=== PATIENT | female | born 1955 | race Caucasian/White ===

== ENCOUNTER → 2016-09-15 | Day surgery (SDC) | payer OTHER ==
[~2016-09-15] MED LIST: ASPI81CH37 CHEW; BUPIVACAINE/EPINEPHRINE 0.25% PF 30 ML VIAL ONE; HYDR25TA5 PO; ISOSULFAN BLUE 50 MG/5 ML VIAL SQ ONE; KETOROLAC TROMETHAMINE 30 MG/ML (IVP) VIAL IV PUSH ONE; LACTATED RINGER'S 1000 ML INJ 1,000 ML ONE; LIPI20TA PO; LISI10TA3 PO; LORA-392 PO; MIDAZOLAM HCL 2 MG/2 ML VIAL ONE; PROPOFOL 500 MG/50 ML BTL IV ONE; PROT40TA PO; VENL50TA PO; ceFAZolin 2 GM PREMIX 50 ML ONE
--- NOTE | 2016-09-15 14:08 | TN ---
cc: OLGA BURGOS M.D. DATE OF SURGERY: 09/15/2016 PREOPERATIVE DIAGNOSIS Right breast cancer. POSTOPERATIVE DIAGNOSIS Right breast cancer. PROCEDURE PERFORMED 1. Needle-localized right breast lumpectomy. 2. [place] node excision right axilla. SURGEON Olga Burgos MD ANESTHESIA General LMA. COMPLICATIONS None. INDICATION FOR PROCEDURE Ms. Boston is a pleasant 61-year-old female who is noted to have a mammographic abnormality in the right breast. She underwent percutaneous biopsy that was found to be invasive ductal carcinoma. She was seen and evaluated in the office. She was sent for MRI which showed no additional lesions of concern. The patient was offered lumpectomy with postoperative radiation versus mastectomy. The patient elected to have lumpectomy. The patient was felt not to be a candidate for partial breast irradiation by Dr. Gusman. Risks and benefits of needle-localized lumpectomy and sentinel node excision was discussed with her and she was agreeable. DETAILS OF PROCEDURE The patient was identified, brought to the operating room and placed supine on the operating table. After adequate general anesthesia was achieved with LMA the right breast was then injected with 10 ccs of isosulfan blue in the periareolar position as well as in the needle localization which was at about the 12 o'clock position of the right breast in the infraclavicular area. This was then massaged into the breast. The right breast and axilla was then prepped and draped in standard surgical fashion. Attention was first directed to the right axilla where the probe was used to locate the approximate location of the sentinel node. Because of the patient's upper outer quadrant lesion she had a lot of shine through and it was difficult to localize the exact location of the sentinel node but by preoperative imaging it appeared to be in the low axilla. 0.25% Marcaine was injected and a low axillary incision was then made. Dissection proceeded down to the subcutaneous tissue. Immediately we found a blue channel going to a group of lymph nodes. These were excised widely using electrocautery Bovie. Because the patient had minimal uptake in this area I elected to do a sampling of the lymph nodes in the approximate location of the blue dye and where the probe had the most activity. This area was excised and then checked and found to have a 10-second count of 751. This was labeled sentinel node package #1. Once we excised these nodes there was no activity whatsoever noted within the axilla. By direct visualization I could not see any blue channels or blue dye within the axilla once this area was excised. By direct palpation I could not palpate any significant adenopathy. Therefore, I felt confident in our axillary sampling. The wound was irrigated out with normal saline solution. 0.25% Marcaine was injected 10 ccs and then the wound was closed in two layers using 3-0 and 4-0 Vicryl. Attention was now directed to the right breast. The patient had a wire localization in the upper central portion of the right breast, very high up toward the infraclavicular region. Therefore, because of its location we were unable to use the hidden scar technique. We therefore made a transverse incision directly medial to the wire after anesthetizing with 0.25% Marcaine. Subcutaneous flaps were then raised in all directions. By MRI imaging the lesion appeared to abut the pectoralis major muscle. We therefore dissected all the way down to the pectoralis major muscle. The breast tissue was then dissected up off the pectoralis fascia. We were beyond the wire with generous margins in all directions. A short stitch was placed superior, long stitch was placed medial and the wire demarcated the lateral position. Specimen was sent to radiology where Dr. Humphrey confirmed the mass to be present within the specimen. Because the lesion abutted the pectoralis major muscle, I elected to go ahead and resect the pectoralis fascia directly posterior to the lesion. This was accomplished using electrocautery Bovie. This was sent as posterior pectoralis margin. We then used small metallic clips to circumferentially olga the area of the pectoralis muscle where the lesion had been in case radiation oncology wanted to boost this area. The wound was copiously irrigated with normal saline solution. The wound was then closed in two layers using 3-0 and 4-0 Vicryl. The lumpectomy cavity was then filled with 20 ccs of 0.25% Marcaine. The patient tolerated the procedure well, was awakened and brought to recovery in stable condition. MD NAFISA Marmolejo/KEYANNA /12:50 PM /1:48 PM
== END | disposition home or self-care (01) ==
LOC: ESDC 06:13
PROVIDERS: ATTEND Surgery Trauma Surgery
DX: D05.11 Intraductal carcinoma in situ of right breast (principal)
CPT/HCPCS: 00400; 01610; 19125; 38525; 38792; 88307; J0690; J1885; J2250; J3010; J7120; Q9968

== ENCOUNTER → 2016-09-26 | Day surgery (SDC) | payer OTHER ==
[~2016-09-26] MED LIST changes: +ACETAMINOPHEN/HYDROcodone 325 MG/5 MG TAB ONE; -ISOSULFAN BLUE 50 MG/5 ML VIAL SQ ONE; -KETOROLAC TROMETHAMINE 30 MG/ML (IVP) VIAL IV PUSH ONE; +PROPOFOL 1000 MG/100 ML BTL IV ONE; -PROPOFOL 500 MG/50 ML BTL IV ONE
--- NOTE | 2016-09-26 14:45 | TN ---
cc: MARANDA BURGOS M.D. DATE OF SURGERY: 09/26/2016 PREOPERATIVE DIAGNOSIS: Hematoma, status post sentinel node excision, right axillae. POSTOPERATIVE DIAGNOSIS: Hematoma, status post sentinel node excision, right axillae. PROCEDURE PREFORMED: Evacuation of hematoma right axillae. SURGEON: Maranda Burgos MD. ANESTHESIA: General TIVA. COMPLICATIONS: None. INDICATIONS FOR PROCEDURE: Miss Boston is a pleasant 61 year old female who had a right breast lumpectomy and sentinel node excision approximately eight days ago. She developed a hematoma on about postoperative day #3, initially this was managed conservatively but the hematoma expanded and was causing her discomfort. She was seen in the office yesterday and we discussed evaluation of the hematoma versus continued observation. The patient is likely to have the hematoma evacuated. The risks and benefits of the hematoma evacuation, drain placement was discussed with her in the office and she was agreeable. DETAILS: The patient was brought to the emergency room and placed supine on the operating room table. After adequate general anesthesia was received with IV the right axillae was prepped and draped in the standard surgical fashion. 0.25% Marcaine was injected, in the skin and subcutaneous tissue around the previous incision. The previous incision was then opened up. Axillae was then entered. A moderate size hematoma was identified and was evacuated with a combination of blunt finger dissection and suction dissection. 20 cc of hydrogen peroxide was then introduced into the wound to break up any additional clots. The wound was then copiously irrigated out with normal saline solution. Several small bleeding points were identified and these were cauterized with electrocautery bovie. There was no arterial or venous bleeding noted. Once we did this there was no bleeding what so ever. The wound was then irrigated out a third time and again no bleeding was noted. A 7 Welsh Denzel Florez drain was inserted through a separate stable wound incision after anesthetizing the sight and tract with 0.25% Marcaine. The drain was secured with the 3-0 nylon. The wound was then closed in two layers, using 3-0 Vicryl and 4-0 Vicryl. Sterile dressings were applied. 25 cc of 0.25% Marcaine was then injected into the drain and the drain was capped. The patient tolerated the [id number] well, was brought to the Recovery Room in angie condition. MD Jose Maria Marmolejo /12:24 PM /12:28 PM
== END | disposition home or self-care (01) ==
LOC: ESDC 10:06
PROVIDERS: ATTEND Surgery Trauma Surgery
DX: L76.32 Postprocedural hematoma of skin and subcutaneous tissue following other procedure (principal)
CPT/HCPCS: 00400; 10140; J0690; J2250; J3010; J7120

== ENCOUNTER 2016-11-19 09:21 | Emergency (ER) | payer OTHER ==
[~2016-11-19] VITALS: Ht 167.6 cm; Wt 72.8 kg
[2016-11-19 09:25] VITALS: BP 140/106; PULSE 106; RESP 16; TEMP 98.7; O2SAT 98
[2016-11-19] MEDS ORDERED: VENL50TA PO (09:56)
[2016-11-19] MEDS ORDERED: PROT40TA PO (09:56)
[2016-11-19] MEDS ORDERED: LIPI20TA PO (09:56)
[2016-11-19] MEDS ORDERED: LISI10TA3 PO (09:56)
[2016-11-19] MEDS ORDERED: HYDR25TA5 PO (09:56)
[2016-11-19] MEDS ORDERED: ASPIRIN 81 MG CHEW TAB PO ONE (10:00)
[2016-11-19] MEDS ORDERED: SODIUM CHLORIDE 0.9% FLUSH 10 ML FLUSH IVF PRN (10:00)
[2016-11-19] MEDS ORDERED: SODIUM CHLORID 0.9% 500 ML INJ 500 ML IV ONE (10:00)
[2016-11-19 10:29] LABS: AUTOMATED NEUTROPHIL # 4.9 TH/MM3 (1.8-7.7); BASOPHIL # 0.1 TH/MM3 (0-0.2); BASOPHIL % 1.7 % (0.0-2.0); EOSINOPHIL % 0.7 % (0.0-4.0); HEMATOCRIT 45.1 % (35.0-46.0); HEMO FLAGS DIFF FINAL; LYMPH % 13.2 % (9.0-44.0); LYMPHOCYTE # 0.9 TH/MM3 (1.0-4.8); MEAN CELL VOLUME 90.6 FL (80.0-100.0); MEAN CORPUSCULAR HEMOGLOBIN 30.1 PG (27.0-34.0); MEAN CORPUSCULAR HGB CONC 33.2 % (32.0-36.0); MONO % 9.5 % (0.0-8.0); NEUT % 74.9 % (16.0-70.0); PLATELET COUNT 245 TH/MM3 (150-450); RED BLOOD COUNT 4.98 MIL/MM3 (4.00-5.30); RED CELL DISTRIBUTION WIDTH 12.1 % (11.6-17.2); WHITE BLOOD COUNT 6.5 TH/MM3 (4.0-11.0)
--- NOTE | 2016-11-19 10:29 | PD ---
HPI Chief Complaint: Chest Pain Time Seen by Provider: 10:00 Travel History International Travel<30 days: No Contact w/Intl Traveler<30days: No Traveled to known affect area: No History of Present Illness HPI Patient is a 61-year-old female with history of hypertension, hyperlipidemia, breast cancer, presents to emergency room with complaints of chest pain and shortness of breath. Patient reports that for the past 2 weeks, she has been increasingly short of breath as well as been having palpitations and chest pain. She reports that when she has chest pain, chest pain feels like a "heaviness and pressure "to her chest. Patient reports that she has just been feeling short of breath, reports that her heart feels "racy", reports that she has problems with even small activities due to her shortness of breath. Patient reports that she has noticed that her heart has been racing, and reports that her HR yesterday was in the 130's. Patient does report history of right-sided breast cancer, patient reports that she had a lumpectomy as well as a lymph node resection by Dr. chavira on September 11, 2016. Patient is currently seeing Dr. Hoyt with oncology. Patient has been receiving radiation treatment for the past 3-[address] Montgomery who is her radiation oncologist. Patient receives doses of radiation treatments every single day except for the weekends for the past 3-4 weeks. Patient reports that she was penitentiary to her radiation treatment today when she developed symptoms of chest pain and shortness of breath. Patient reports that she feels short of breath at rest, short of breath exertion, reports that she has been having increased level taking a deep breath. No history of coronary disease or RI in the past. No history of PE or DVT. PFSH Past Medical History Cancer: Yes (BREAST) High Cholesterol: Yes GERD: Yes Hypertension: Yes Influenza Vaccination: Yes Past Surgical History Abdominal Surgery: Yes (HIATEL HERNIA REPAIR) Appendectomy: Yes Hysterectomy: Yes Other Surgery: Yes (BIALTERAL BUNIONECTOMY, RIGHT BREAST LUMPECTOMY WITH LYMPH NODES) Social History Alcohol Use: Yes (WINE DAILY) Tobacco Use: No Substance Use: No Allergies-Medications (Allergen,Severity, Reaction): Coded Allergies: No Known Allergies (Unverified , 11/19/16) Reported Meds & Prescriptions Reported Meds & Active Scripts Active Aspirin Low Dose (Aspirin) 81 Mg Chew 81 Mg CHEW DAILY 30 Days Reported Protonix (Pantoprazole Sodium) 40 Mg Tab 40 Mg PO DAILY Lisinopril 10 Mg Tab 10 Mg PO DAILY Hydrochlorothiazide 25 Mg Tab 25 Mg PO DAILY Effexor (Venlafaxine HCl) 50 Mg Tab 50 Mg PO DAILY Lipitor (Atorvastatin Calcium) 20 Mg Tab 20 Mg PO HS Review of Systems General / Constitutional: No: Fever Eyes: No: Visual changes HENT: No: Headaches Cardiovascular: Positive: Chest Pain or Discomfort, Palpitations, Tachycardia Respiratory: Positive: Shortness of Breath Gastrointestinal: No: Abdominal Pain Genitourinary: No: Dysuria Musculoskeletal: No: Pain Skin: No Rash Neurologic: No: Weakness Psychiatric: No: Depression Endocrine: No: Polydipsia Hematologic/Lymphatic: No: Easy Bruising Physical Exam Narrative GENERAL: NAD, Nontoxic SKIN: Focused skin assessment warm/dry. HEAD: Atraumatic. Normocephalic. EYES: Pupils equal and round. No scleral icterus. No injection or drainage. ENT: No nasal bleeding or discharge. Mucous membranes pink and moist. NECK: Trachea midline. No JVD. CARDIOVASCULAR: Regular rate and rhythm. No murmur appreciated. RESPIRATORY: No accessory muscle use. Clear to auscultation. Breath sounds equal bilaterally. GASTROINTESTINAL: Abdomen soft, non-tender, nondistended. Hepatic and splenic margins not palpable. MUSCULOSKELETAL: No obvious deformities. No clubbing. No cyanosis. No edema. NEUROLOGICAL: Awake and alert. No obvious cranial nerve deficits. Motor grossly within normal limits. Normal speech. PSYCHIATRIC: Appropriate mood and affect; insight and judgment normal. Data Data Last Documented VS Vital Signs Date Time Temp Pulse Resp B/P Pulse Ox O2 Delivery O2 Flow Rate FiO2 11/19/16 13:30 87 18 129/72 98 Room Air 11/19/16 09:25 98.7 Orders B-Type Natriuretic Peptide (11/19/16 10:00) Ckmb (Isoenzyme) Profile (11/19/16 10:00) Complete Blood Count With Diff (11/19/16 10:00) Comprehensive Metabolic Panel (11/19/16 10:00) Magnesium (Mg) (11/19/16 10:00) Prothrombin Time / Inr (Pt) (11/19/16 10:00) Act Partial Throm Time (Ptt) (11/19/16 10:00) Troponin I (11/19/16 10:00) Chest, Single Ap (11/19/16 10:00) Ecg Monitoring (11/19/16 10:00) Iv Access Insert/Monitor (11/19/16 10:00) Oximetry (11/19/16 10:00) Aspirin Chew (Aspirin Chew) (11/19/16 10:00) Sodium Chloride 0.9% Flush (Ns Flush) (11/19/16 10:00) Sodium Chlorid 0.9% 500 Ml Inj (Ns 500 M (11/19/16 10:00) Ct Pulmonary Angiogram (11/19/16 10:00) CKMB (11/19/16 10:18) CKMB% (11/19/16 10:18) Iohexol 350 Inj (Omnipaque 350 Inj) (11/19/16 11:35) Ketorolac Inj (Toradol Inj) (11/19/16 12:30) Electrocardiogram (11/19/16 13:00) Ckmb (Isoenzyme) Profile (11/19/16 13:00) Troponin I (11/19/16 13:00) Lorazepam (Ativan) (11/19/16 13:00) Labs Laboratory Tests Test 11/19/16 11/19/16 10:18 13:18 White Blood Count 6.5 TH/MM3 Red Blood Count 4.98 MIL/MM3 Hemoglobin 15.0 GM/DL Hematocrit 45.1 % Mean Corpuscular Volume 90.6 FL Mean Corpuscular Hemoglobin 30.1 PG Mean Corpuscular Hemoglobin 33.2 % Concent Red Cell Distribution Width 12.1 % Platelet Count 245 TH/MM3 Mean Platelet Volume 7.3 FL Neutrophils (%) (Auto) 74.9 % Lymphocytes (%) (Auto) 13.2 % Monocytes (%) (Auto) 9.5 % Eosinophils (%) (Auto) 0.7 % Basophils (%) (Auto) 1.7 % Neutrophils # (Auto) 4.9 TH/MM3 Lymphocytes # (Auto) 0.9 TH/MM3 Monocytes # (Auto) 0.6 TH/MM3 Eosinophils # (Auto) 0.0 TH/MM3 Basophils # (Auto) 0.1 TH/MM3 CBC Comment DIFF FINAL Differential Comment Prothrombin Time 10.7 SEC Prothromb Time International 1.0 RATIO Ratio Activated Partial 26.8 SEC Thromboplast Time Sodium Level 137 MEQ/L Potassium Level 3.0 MEQ/L Chloride Level 99 MEQ/L Carbon Dioxide Level 27.4 MEQ/L Anion Gap 11 MEQ/L Blood Urea Nitrogen 11 MG/DL Creatinine 0.74 MG/DL Estimat Glomerular Filtration 80 ML/MIN Rate Random Glucose 107 MG/DL Calcium Level 9.3 MG/DL Magnesium Level 2.1 MG/DL Total Bilirubin 0.5 MG/DL Aspartate Amino Transf 23 U/L (AST/SGOT) Alanine Aminotransferase 30 U/L (ALT/SGPT) Alkaline Phosphatase 59 U/L Total Creatine Kinase 101 U/L 98 U/L Creatine Kinase MB 1.9 NG/ML Troponin I LESS THAN 0.02 LESS THAN 0.02 NG/ML NG/ML B-Type Natriuretic Peptide 7 PG/ML Total Protein 7.2 GM/DL Albumin 4.1 GM/DL [facility] Medical Decision Making Medical Screen Exam Complete: Yes Emergency Medical Condition: Yes Interpretation(s) EKG at 0930: Normal sinus rhythm at 92 bpm, QT/QTc 380/436, nonspecific ST segment changes Vital Signs Date Time Temp Pulse Resp B/P Pulse Ox O2 Delivery O2 Flow Rate FiO2 11/19/16 09:25 98.7 106 16 140/106 98 Differential Diagnosis ACS, arrhythmia, electrolyte abnormality, PE, pneumothorax Narrative Course Patient is a 61 year old female with hx of BC, htn, hyperlidipemia, presents to ER with c/o of chest pain, tachycardia, sob for the past 2 weeks. E[address] with nons[address]-T Patient with a clinical research monitor upon arrival to the emergency room. Labs As well as cardiac enzymes ordered. X-ray the chest ordered as patient is complaining of shortness of breath. PE study ordered for evaluation of possible PE as patient is having pleuritic symptoms of chest pain and shortness of breath and tachycardia, she is a cancer patient and is currently undergoing radiation treatment. We'll continue to monitor patient on clinical research monitor. Laboratory Tests Test 11/19/16 10:18 White Blood Count 6.5 TH/MM3 (4.0-11.0) Red Blood Count 4.98 MIL/MM3 (4.00-5.30) Hemoglobin 15.0 GM/DL (11.6-15.3) Hematocrit 45.1 % (35.0-46.0) Mean Corpuscular Volume 90.6 FL (80.0-100.0) Mean Corpuscular Hemoglobin 30.1 PG (27.0-34.0) Mean Corpuscular Hemoglobin 33.2 % Concent (32.0-36.0) Red Cell Distribution Width 12.1 % (11.6-17.2) Platelet Count 245 TH/MM3 (150-450) Mean Platelet Volume 7.3 FL (7.0-11.0) Neutrophils (%) (Auto) 74.9 % (16.0-70.0) Lymphocytes (%) (Auto) 13.2 % (9.0-44.0) Monocytes (%) (Auto) 9.5 % (0.0-8.0) Eosinophils (%) (Auto) 0.7 % (0.0-4.0) Basophils (%) (Auto) 1.7 % (0.0-2.0) Neutrophils # (Auto) 4.9 TH/MM3 (1.8-7.7) Lymphocytes # (Auto) 0.9 TH/MM3 (1.0-4.8) Monocytes # (Auto) 0.6 TH/MM3 (0-0.9) Eosinophils # (Auto) 0.0 TH/MM3 (0-0.4) Basophils # (Auto) 0.1 TH/MM3 (0-0.2) CBC Comment DIFF FINAL Differential Comment Prothrombin Time 10.7 SEC (9.8-11.6) Prothromb Time International 1.0 RATIO Ratio Activated Partial 26.8 SEC Thromboplast Time (24.3-30.1) Sodium Level 137 MEQ/L (136-145) Potassium Level 3.0 MEQ/L (3.5-5.1) Chloride Level 99 MEQ/L (98-107) Carbon Dioxide Level 27.4 MEQ/L (21.0-32.0) Anion Gap 11 MEQ/L (5-15) Blood Urea Nitrogen 11 MG/DL (7-18) Creatinine 0.74 MG/DL (0.50-1.00) Estimat Glomerular Filtration 80 ML/MIN (>89) Rate Random Glucose 107 MG/DL (74-106) Calcium Level 9.3 MG/DL (8.5-10.1) Magnesium Level 2.1 MG/DL (1.5-2.5) Total Bilirubin 0.5 MG/DL (0.2-1.0) Aspartate Amino Transf 23 U/L (15-37) (AST/SGOT) Alanine Aminotransferase 30 U/L (10-53) (ALT/SGPT) Alkaline Phosphatase 59 U/L (45-117) Total Creatine Kinase 101 U/L (26-192) Creatine Kinase MB 1.9 NG/ML (0.5-3.6) Troponin I LESS THAN 0.02 NG/ML (0.02-0.05) B-Type Natriuretic Peptide 7 PG/ML (0-100) Total Protein 7.2 GM/DL (6.4-8.2) Albumin 4.1 GM/DL (3.4-5.0) Last Impressions Chest X-Ray 11/19/16 1000 Signed Impressions: Service Date/Time: Saturday, November 19, 2016 10:31 - CONCLUSION: 1. No acute cardiopulmonary disease. Thanh Baldwin MD CT Angiography 11/19/16 1000 Signed Impressions: Service Date/Time: Saturday, November 19, 2016 11:11 - CONCLUSION: 1. Minimal linear atelectatic changes in the bases. No confluent infiltrate or pulmonary embolus. 2. Small hiatal hernia. 3. Anatomic variant of the aortic arch the left vertebral emanating directly off the arch. 4. Postsurgical changes in the right breast. Nathan Yanes MD Discussed with patient need for observation to the hospital for chest pain. Patient does not to be admitted to the hospital, request to be discharged to follow up with hydrology teacher as outpatient. Patient reports that she is very anxious, reports that she thinks that her cancer treatments are overwhelming, requests something for her anxiety at this time. I did discuss with her that she does have risk factors for cardiac chest pain including hypertension and hyperlipidemia, patient prefers to be discharged and follow with hydrology teacher as an outpatient. I did have a repeat EKG at 1302 which shows normal sinus rhythm at 90 bpm, patient with similar ST-T wave changes which are nonspecific. Plan to repeat another cardiac enzyme at this time. Patient refuses admission to the hospital, will give her referral to hydrology teacher. Patient understands that she will need to return to emergency room immediately should she have return symptoms of chest pain. Repeat cardiac enzymes were negative. Patient reports that she is feeling better after Ativan was given to her. Again, tried to talk patient into staying in the hospital for observation, patient refuses at this time. Signs and symptoms of when to return to the emergency room was reviewed with patient detail. Patient will call cardiology first in the morning for earliest follow- up. Patient will return to emergency room if she has return of symptoms. Patient requesting a prescription for Ativan for anxiety, understands that she should not drive while taking this medication. Diagnosis Primary Impression: Chest pain Qualified Code: R07.9 - Chest pain, unspecified type Additional Impression: Anxiety Referrals: Taurus Anthony MD Patient Instructions: General Instructions Additional Instructions: Please provide patient with a copy of her lab work at discharge Please follow up with hydrology teacher as soon as possible, do not perform exertional activities until you're seen and cleared by hydrology teacher, please take a baby aspirin every single day, return to the emergency room if symptoms return Please note drive or operate heavy machinery while taking benzodiazepines Please return to emergency room should you have return of symptoms. Please follow-up with your primary care doctor Med/Other Pt SpecificInfo: Prescription(s) given Scripts Lorazepam (Ativan)0.5 Mg Tab0.5 Mg PO DAILY PRN (ANXIETY AND/OR AGITATION) #12 TAB Ref 0 Prov:Lucinda Rome DO 11/19/16 Aspirin (Aspirin Low Dose)81 Mg Chew81 Mg CHEW DAILY 30 Days Ref 0 Prov:Lucinda Rome DO 11/19/16 Disposition: 01 DISCHARGE HOME Condition: Stable Lucinda Rome DO Nov 19, 2016 10:29
[2016-11-19 10:37] LABS: CHLORIDE 99 MEQ/L (98-107); SODIUM (NA) 137 MEQ/L (136-145)
[2016-11-19 10:40] LABS: ANION GAP 11 MEQ/L (5-15); APTT (PATIENT) 26.8 SEC (24.3-30.1); BICARBONATE 27.4 MEQ/L (21.0-32.0); BLOOD UREA NITROGEN 11 MG/DL (7-18); MAGNESIUM 2.1 MG/DL (1.5-2.5); PROTHROMBIN TIME - PATIENT 10.7 SEC (9.8-11.6)
--- NOTE | 2016-11-19 10:41 | RADHPO ---
EXAM DATE/TIME: 11/19/2016 10:31 [facility] COMPARISON: No previous studies available for comparison. INDICATIONS : Chest heaviness, short of breath. MEDICAL HISTORY : Carcinoma, breast. radiation SURGICAL HISTORY : Right lumpectomy ENCOUNTER: Initial ACUITY: 2 weeks PAIN SCORE: 1/10 LOCATION: Bilateral chest FINDINGS: A single view of the chest demonstrates the lungs to be symmetrically aerated without evidence of mas s, infiltrate or effusion. The cardiomediastinal contours are unremarkable. Osseous structures are intact. CONCLUSION: 1. No acute cardiopulmonary disease. Thanh Baldwin MD on November 19, 2016 at 10:39 Board Certified Radiologist. This report was verified electronically.
[2016-11-19 10:43] LABS: ALT (GPT) 30 U/L (10-53); AST (GOT) 23 U/L (15-37); GLOMERULAR FILTRATION RATE 80 ML/MIN (>89)
[2016-11-19 10:45] LABS: TOTAL BILIRUBIN ADULT 0.5 MG/DL (0.2-1.0)
[2016-11-19 10:46] LABS: ALKALINE PHOSPHATASE 59 U/L (45-117); CREATINE KINASE 101 U/L (26-192)
[2016-11-19 10:58] VITALS: O2SAT 98
[2016-11-19 10:58] LABS: CKMB 1.9 NG/ML (0.5-3.6)
[2016-11-19] MEDS ORDERED: IOHEXOL 350 MG/ML 10 ML VIAL (for RAD DIAG) IV ONE (11:35)
[2016-11-19] MEDS ORDERED: KETOROLAC TROMETHAMINE 30 MG/ML (IVP) VIAL IV PUSH ONE (12:30)
--- NOTE | 2016-11-19 12:47 | RADHPO ---
EXAM DATE/TIME: 11/19/2016 11:11 [facility] COMPARISON: No previous studies available for comparison. INDICATIONS : Chest pain, shortness of breath and tachycardia. IV CONTRAST: 75 cc Omnipaque 350 (iohexol) IV RADIATION DOSE: 13.26 CTDIvol (mGy) MEDICAL HISTORY : Carcinoma, breast. Hypertension. Gastroesophageal reflux disease.Current radiation therapy for breast cancer. SURGICAL HISTORY : Right breast lumpectomy. ENCOUNTER: Initial ACUITY: 1 week PAIN SCALE: 4/10 LOCATION: Bilateral chest TECHNIQUE: Volumetric scanning of the chest was performed using a pulmonary embolism protocol MIP images were re constructed. Using automated exposure control and adjustment of the mA and/or kV according to patien t size, radiation dose was kept as low as reasonably achievable to obtain optimal diagnostic quality images. FINDINGS: PULMONARY ARTERIES: No filling defects are seen in the pulmonary arteries through the segmental level. LUNGS: Linear bibasilar atelectatic changes. No confluent infiltrate. PLEURAE: There is no pleural thickening or pleural effusion. MEDIASTINUM: There is good visualization of the great vessels of the middle mediastinum. No evidence of mediastin al or hilar adenopathy/mass. Anatomic variant of the aortic arch with the left vertebral emanating di rectly off the arch MUSCULOSKELETAL: Within normal limits for patient age. MISCELLANEOUS: The visualized upper abdominal organs demonstrate no acute abnormality. Small hiatal hernia. Low-dens ity, 2 cm lesion in the right breast with regional surgical clips probably representing a prior biops y. CONCLUSION: 1. Minimal linear atelectatic changes in the bases. No confluent infiltrate or pulmonary embolus. 2. Small hiatal hernia. 3. Anatomic variant of the aortic arch the left vertebral emanating directly off the arch. 4. Postsurgical changes in the right breast. Nathan Yanes MD on November 19, 2016 at 12:33 Board Certified Radiologist. This report was verified electronically.
[2016-11-19] MEDS ORDERED: LORazepam 0.5 MG TAB PO ONE (13:00)
[2016-11-19 13:30] VITALS: BP 129/72; PULSE 87; RESP 18; O2SAT 98
[2016-11-19] MEDS ORDERED: ASPI81CH37 CHEW (13:33)
[2016-11-19 13:50] LABS: CREATINE KINASE 98 U/L (26-192)
[2016-11-19] MEDS ORDERED: LORA-392 PO (14:14)
--- NOTE | 2016-11-20 13:15 | EKG ---
Date Performed: 11/19/2016 Time Performed: 09:30:32 PTAGE: 61 years EKG: Sinus rhythm Left axis deviation Lateral ST-T changes are nonspecific Borderline ECG NO PREVIOUS TRACING DOCTOR: Thanh Velazco Interpretating Date/Time 11/20/2016 13:13:30
--- NOTE | 2016-11-20 13:35 | EKG ---
Date Performed: 11/19/2016 Time Performed: 13:02:22 PTAGE: 61 years EKG: Sinus rhythm Leftward axis Anterolateral ST-T changes may be due to myocardial ischemia Abnormal ECG PREVIOUS TRACING : 11/19/2016 09.30 Compared to prior tracing no significant change DOCTOR: Thanh Velazco Interpretating Date/Time 11/20/2016 13:34:07
== END 2016-11-19 15:08 | disposition home or self-care (01) ==
LOC: PHED 09:21
DX: R07.9 Chest pain, unspecified (principal); F41.9 Anxiety disorder, unspecified; R06.02 Shortness of breath; R00.2 Palpitations; R00.0 Tachycardia, unspecified; I10 Essential (primary) hypertension; E78.5 Hyperlipidemia, unspecified; C50.919 Malignant neoplasm of unspecified site of unspecified female breast; R94.31 Abnormal electrocardiogram [ECG] [EKG]
CPT/HCPCS: 71010; 71275; 80053; 82550; 82552; 83735; 83880; 84484; 85025; 85610; 85730; 93005; 96361; 96374; 99285; J1885; J7040; Q9967

== ENCOUNTER → 2017-10-01 | Outpatient (CLI) | payer OTHER ==
[~2017-10-01] VITALS: Ht 167.6 cm; Wt 70.1 kg
[~2017-10-01] MED LIST changes: +ACET650T67 PO; -ACETAMINOPHEN/HYDROcodone 325 MG/5 MG TAB ONE; -ASPI81CH37 CHEW; +ATOR40TA16 PO; -BUPIVACAINE/EPINEPHRINE 0.25% PF 30 ML VIAL ONE; +CALC1TAB87 PO; +CHLORHEXIDINE GLUCONATE 2 % 1 PACK (2 CLOTHS) TOPICAL PRN; +DEXTROSE 5%-LACTATED RING INJ 1,000 ML IV SCH; +ECASA81 PO; -HYDR25TA5 PO; +INSULIN HUMAN REGULAR 1,000 UNITS/10 ML VIAL SQ PRN; -LACTATED RINGER'S 1000 ML INJ 1,000 ML ONE; +LACTATED RINGER'S 1000 ML IV PRN; +LIDOCAINE HCL 1% PF 5 ML SYRINGE OTHER ONE; -LIPI20TA PO; +LISI-515 PO; -LISI10TA3 PO; -LORA-392 PO; +METOPROLOL TARTRATE 25 MG TAB PO PRN; -MIDAZOLAM HCL 2 MG/2 ML VIAL ONE; +ONABOTULINUMTOXINA INJ 100 UNITS/VIAL ONE; +POVIDONE IODINE 5% (ANTISEPSIS KIT) 4 APPLICATIONS EACH NARE PRN; -PROPOFOL 1000 MG/100 ML BTL IV ONE; +PROPOFOL 200 MG/20 ML AMP IV ONE; -PROT40TA PO; +SODIUM CHLORID 0.9% 500 ML IV PRN; -VENL50TA PO; +VENL75TA PO; -ceFAZolin 2 GM PREMIX 50 ML ONE
--- NOTE | 2017-10-01 10:31 | GIPROC ---
[facility] [address]. [facility], [address] EGD WITH DILATION PROCEDURE REPORT EXAM DATE: 10/01/2017 PATIENT NAME: Chichi Boston MR#: [id number] BIRTHDATE: 1955 ATTENDING: Parul Watters MD ORDER #: [id number] GYNAECOLOGICAL ONCOLOGIST: Denice Chapin RN and Saima Toure RN STATUS: outpatient INDICATIONS: The patient is a 62 yr old female here for an EGD with dilation due to dysphagia, esophageal dysmotility paraesophageal hernia PROCEDURE PERFORMED: EGD w/ biopsy EGD w/ dilation of esophagus via guidewire EGD w/ directed submucosal injection(s), any substance MEDICATIONS: None and Per Anesthesia. TOPICAL ANESTHETIC: none CONSENT: The patient understands the risks and benefits of the procedure and understands that these risks include, but are not limited to: sedation, allergic reaction, infection, perforation and/or bleeding. Alternative means of evaluation and treatment include, among others: physical exam, x-rays, and/or surgical intervention. The patient elects to proceed with this endoscopic procedure. medical equipment was checked for proper function. Hand hygiene and appropriate measures for infection prevention was taken. After the risks, benefits and alternatives of the procedure were thoroughly explained, Informed consent was verified, confirmed and timeout was successfully executed by the treatment team. The patient was anesthetized with topical anesthesia and the Pentax EG-[id number] endoscope was introduced through the mouth and advanced to the second portion of the duodenum. The instrument was slowly withdrawn as the mucosa was fully examined. Gastritis antrum-biopsy esophagitis distal esophagus -biopsy surgical changes in fundus BOTOX injected in distal esophagus above eg junction-100 units -25 units in each quadrant. Dilation was performed at gastroesophageal junction. DILATOR: SIZE(S): RESISTANCE: HEME: APPEARANCE: Dilator: Savary over guidewire Size(s): 16 COMMENT: Retroflexed views revealed a hiatal hernia and Retroflexed views revealed paraesophageal ADVERSE EVENTS: There were no complications. IMPRESSIONS: 1. Gastritis antrum-biopsy esophagitis distal esophagus -biopsy surgical changes in fundus BOTOX injected in distal esophagus above eg junction-100 units -25 units in each quadrant 2. Retroflexed views revealed a hiatal hernia 3. Retroflexed views revealed paraesophageal RECOMMENDATIONS: 1. Await biopsy results. Biopsy results will not be ready for 7-10 days. If you don't hear from us in two weeks, call our office for biopsy results. 2. Anti-reflux regimen 3. Continue PPI 4. Start PPI 5. Avoid NSAIDS REPEAT EXAM: Return 3 years EGD Parul Watters MD eSigned: Parul Watters MD 10/01/2017 10:30 AM cc: PATIENT NAME: Chichi Boston MR#: [id number]
[2017-10-01 11:08] VITALS: BP 106/73; PULSE 74; RESP 18; TEMP 97; O2SAT 100
--- NOTE | 2017-10-01 21:28 | EKG ---
Date Performed: 10/01/2017 Time Performed: 08:57:05 PTAGE: 62 years EKG: Sinus rhythm MARKED LEFT AXIS DEVIATION POSSIBLE LATERAL MYOCARDIAL INFARCTION , PROBABLY OLD SINCE PRIOR TRACING THE LATERAL INFARCTION PATTERN IS MORE PROMINENT. ABNORMAL ECG PREVIOUS TRACING : 11/19/2016 13.02 DOCTOR: Lavelle Blanc Interpretating Date/Time 10/01/2017 21:26:58
== END ==
LOC: HSDC 08:29
PROVIDERS: ATTEND Internal Medicine Gastroenterology
DX: R13.10 Dysphagia, unspecified (principal); K22.0 Achalasia of cardia; K22.4 Dyskinesia of esophagus; K44.9 Diaphragmatic hernia without obstruction or gangrene; K29.70 Gastritis, unspecified, without bleeding; K20.9 Esophagitis, unspecified; I10 Essential (primary) hypertension
CPT/HCPCS: 00731; 43236; 43248; 88305; 93005; C1769; J0585; J7120